=== PATIENT | female | born 1970 | race Caucasian/White ===

== ENCOUNTER 2022-03-09 10:50 | Outpatient (CLI) | payer OTHER, SELFPAY ==
[2022-03-09 13:55] LABS: Chloride* 105 mmol/L (96-114); Sodium* 138 mmol/L (135-149)
[2022-03-09 13:56] LABS: Potassium* 4.3 mmol/L (3.6-5.1)
[2022-03-09 13:58] LABS: Creatinine* 0.6 mg/dL (0.5-1.5); Estimated Glomerular Filt Rate 107 ml/min
[2022-03-09 13:59] LABS: Blood Urea Nitrogen* 11 mg/dL (7-30); Calcium* 9.5 mg/dL (8.4-10.6); Carbon Dioxide* 26 mmol/L (20-32); Glucose* 101 mg/dL (60-115)
== END 2022-03-09 10:51 | disposition home or self-care (01) ==
LOC: LONREF 10:51
PROVIDERS: PCP Family Medicine; Visit Provider Family Medicine
DX: Z01.818 Encounter for other preprocedural examination (principal)
CPT/HCPCS: 80048

== ENCOUNTER 2023-08-28 07:03 | Outpatient (CLI) | payer OTHER, SELFPAY ==
--- NOTE | 2023-08-28 07:15 | MR_ITS ---
Patient: GAVIN HONEYCUTT Facility:?[facility] Patient ID:?[id number] Site Patient ID:?[id number] Site :?[id number] Study:?MRI-Spine Cervical WO-08/28/2023 8:03:02 AM Ordering Physician:BRENNA Final Report: Indication: Neck pain, history of fusion Technique: Noncontrast sagittal T1, T2, STIR and axial T1, T2 spin echo and GRE sequences are provided. Comparison: MRI 09/24/2021 Findings: Normal cervical spine alignment. Vertebral body heights are maintained. No fractures. No prevertebral or paraspinal edema. No aggressive osseous lesions. The craniocervical junction is unremarkable. Postop changes of ACDF at C4-5 and C5-6. Mature interbody fusion at C6-7. Foci of hypoattenuation in the right neck between the right lobe of the thyroid gland and carotid sheath likely representing postop changes. C1-2: No spinal canal stenosis. C2-3: No significant spinal canal stenosis or neural foraminal narrowing. C3-4: No significant spinal canal stenosis or neural foramen narrowing. C4-5: Postoperative changes. No spinal canal stenosis or neural foramen narrowing. C5-6: Postoperative changes. No significant spinal canal stenosis or neural foramen narrowing. C6-7: Postop changes. No significant spinal canal stenosis or neural foramen narrowing. C7-T1: No significant spinal canal stenosis or neural foramen narrowing. Impression: 1. No acute osseous or ligamentous abnormality. Stable alignment. Postoperative changes of ACDF at C4-C7 levels. Mature interbody fusion at C6-7 level. 2. No suspicious disc bulge or herniation. No significant spinal canal stenosis or neural foraminal narrowing. 3. No abnormal spinal cord signal. No intradural pathology. Dictated by Medardo Luna MD @ 08/28/2023 9:25:03 AM Signed by:?Medardo Luna MD @08/28/2023 9:25:03 AM (Electronic Signature)
== END 2023-08-28 07:04 | disposition home or self-care (01) ==
LOC: MRI 07:09
PROVIDERS: PCP Family Medicine; Visit Provider Family Medicine
DX: M54.2 Cervicalgia (principal); M48.02 Spinal stenosis, cervical region; M54.12 Radiculopathy, cervical region; Z98.1 Arthrodesis status
CPT/HCPCS: 72141